=== PATIENT | female | born 1990 | race African-American/Black ===

== ENCOUNTER 2019-01-20 12:27 | Emergency (ER) | payer OTHER ==
[~2019-01-20] VITALS: Ht 160 cm; Wt 70.3 kg
[2019-01-20 12:33] VITALS: Ht 160 cm; Wt 70.3 kg
[2019-01-20 14:23] VITALS: BP 127/74
== END 2019-01-20 14:23 | disposition home or self-care (01) ==
LOC: ED 12:27
DX: B86 Scabies (principal)